=== PATIENT | female | born 1975 | race African-American/Black ===

== ENCOUNTER → 2018-12-09 | Emergency (ER) | payer OTHER ==
[~2018-12-09] VITALS: Ht 162.6 cm; Wt 113.4 kg
[~2018-12-09] MED LIST: ADVAIR HFA 230/12 GM; BOTOX200 UNIT; CLARITIN5 MG/5 ML; COUGH & COLD T1 EACH; LYRICA225 MG; REGLAN5 MG/5 ML; RELAGESIC 5001 EACH; SINGULAIR10 MG
== END | disposition left against medical advice (07) ==
LOC: ER 22:12
DX: B34.9 Viral infection, unspecified (principal); R51 Headache